=== PATIENT | female | born 1940 | race Caucasian/White ===

== ENCOUNTER 2018-02-15 03:06 | Inpatient (IN) | payer BC, MEDICARE ==
[~2018-02-15] VITALS: Ht 170.2 cm; Wt 99.0 kg
[2018-02-15] MEDS ORDERED: SODIUM CHLORIDE FLUSH 10ML SYR IVF ONE (03:30)
[2018-02-15] MEDS ORDERED: ACETAMINOPHEN 500 MG TABLET PO ONE (03:45)
[2018-02-15 03:48] LABS: ALANINE AMINOTRANSFERASE 16 U/L (12-78); ALBUMIN 3.1 g/dL (3.4-5.0); ANION GAP 7 mmol/L (5-15); CALCIUM 8.5 mg/dL (8.5-10.1); CHLORIDE 104 mmol/L (98-107); CREATININE 1.82 mg/dL (0.55-1.02)
[2018-02-15] MEDS ORDERED: ACETAMINOPHEN 500 MG TABLET ONE (03:52)
[2018-02-15 03:53] LABS: ALKALINE PHOSPHATASE 129 U/L (45-117); BILIRUBIN,TOTAL 0.4 mg/dL (0.2-1.0); TOTAL PROTEIN 6.9 g/dL (6.4-8.2); TROPONIN I < 0.015 ng/mL (0.000-0.045)
[2018-02-15 04:06] LABS: MICROSCOPIC INDICATED
[2018-02-15 04:15] LABS: CULTURE INDICATED? NO
[2018-02-15] MEDS ORDERED: SODIUM CHLORIDE 0.9% 1,000ML IVBOLUS ONE (04:30)
[2018-02-15] MEDS ORDERED: CEFTRIAXONE 1,000 MG in SODIUM CHLORIDE 0.9% 50 ML IVPB ONE (04:30)
[2018-02-15] MEDS ORDERED: AZITHROMYCIN 250 MG TABLET PO ONE ×2 (04:30→05:00)
[2018-02-15 04:33] LABS: BASOPHILS # (AUTO) 0.02 x10^3/uL (0-0.1); BASOPHILS % (AUTO) 0 % (0-1); EOSINOPHILS # (AUTO) 0.79 x10^3/uL (0-0.4); EOSINOPHILS % (AUTO) 10 % (1-7); LYMPHOCYTES # (AUTO) 0.47 x10^3/uL (1-3.4); LYMPHOCYTES % (AUTO) 6 % (22-44); MD SCAN; MEAN CORPUSCULAR HEMOGLOBIN 29.7 pg (27.0-34.8); MEAN CORPUSCULAR HGB CONC 32.7 g/dL (32.4-35.8); MEAN CORPUSCULAR VOLUME 90.9 fL (80-100); MEAN PLATELET VOLUME 8.2 fL (7.4-10.4); MONOCYTES # (AUTO) 0.47 x10^3/uL (0.2-0.8); MONOCYTES % (AUTO) 6 % (2-9); NEUTROPHILS # (AUTO) 6.16 x10^3/uL (1.8-6.8); NEUTROPHILS % (AUTO) 78 % (42-75); PLATELET COUNT 191 x10^3/uL (130-400); RED BLOOD COUNT 3.66 x10^6/uL (3.82-5.3); RED CELL DISTRIBUTION WIDTH 14.1 % (9.6-15.2)
[2018-02-15 04:49] LABS: INTERNATIONAL NORMALIZED RATIO 1.05 (0.93-1.1); PROTHROMBIN TIME 11.1 Seconds (9.6-11.5)
[2018-02-15] MEDS ORDERED: AZITHROMYCIN 250 MG TABLET ONE (04:57)
[2018-02-15] MEDS ORDERED: CEFTRIAXONE PMX 1GM/50ML 50 ML ONE (04:57)
[2018-02-15 05:25] LABS: RAPID INFLUENZA A Negative (Negative); RAPID INFLUENZA B Negative (Negative)
[2018-02-15] MEDS ORDERED: CLON0.1T22 PO (05:29)
[2018-02-15] MEDS ORDERED: CYAN1TAB29 PO (05:29)
[2018-02-15] MEDS ORDERED: CLOP75TA PO (05:29)
[2018-02-15] MEDS ORDERED: GABA300C10 PO (05:29)
[2018-02-15] MEDS ORDERED: INSU100V13 SC (05:29)
[2018-02-15] MEDS ORDERED: OMEP-110 PO (05:29)
[2018-02-15] MEDS ORDERED: METO25TA35 PO (05:29)
[2018-02-15] MEDS ORDERED: INSU100C5 SQ-INSULIN (05:29)
[2018-02-15] MEDS ORDERED: ONDA4TAB7 PO (05:29)
[2018-02-15] MEDS ORDERED: METF500T17 PO (05:29)
[2018-02-15] MEDS ORDERED: LOSA25TA6 PO (05:29)
[2018-02-15] MEDS ORDERED: ZINC100T PO (05:29)
[2018-02-15] MEDS ORDERED: POTA99TA24 PO (05:29)
[2018-02-15] MEDS ORDERED: ASPI-496 PO (05:29)
[2018-02-15] MEDS ORDERED: SODIUM CHLORIDE 0.9% 1,000 ML IV ONE (06:18)
[2018-02-15] MEDS ORDERED: ONDANSETRON 2MG/ML, 2ML IVPush PRN ×2 (06:30→08:30)
[2018-02-15] MEDS: AZITHROMYCIN 500 MG in SODIUM CHLORIDE 0.9% 250 ML IV SCH (08:30)
[2018-02-15] MEDS ORDERED: ACETAMINOPHEN 325 MG TABLET PO PRN (08:30)
[2018-02-15] MEDS: CEFTRIAXONE PMX 1GM/50ML 50 ML IV SCH (08:30)
[2018-02-15] MEDS ORDERED: morphine SULFATE 10 MG/ML, 1ML IVPush PRN (08:30)
[2018-02-15] MEDS ORDERED: POLYETHYLENE GLYCOL 17 GM PACKET PO PRN (08:30)
[2018-02-15] MEDS ORDERED: DOCUSATE 100 MG CAPSULE PO PRN (08:30)
[2018-02-15] MEDS ORDERED: SENNA/DOCUSATE TABLET ONE ×2 (08:38→08:52)
[2018-02-15] MEDS ORDERED: CLOPIDOGREL 75 MG TABLET ONE (08:38)
[2018-02-15] MEDS ORDERED: FAMOTIDINE 20 MG TABLET ONE (08:38)
[2018-02-15] MEDS ORDERED: GABAPENTIN 300 MG CAPSULE ONE (08:39)
[2018-02-15] MEDS ORDERED: HEPARIN 5,000 UNITS/ML, 1ML ONE (08:39)
[2018-02-15] MEDS ORDERED: METOPROLOL TARTRATE 25 MG TABLET ONE (08:39)
[2018-02-15] MEDS: HEPARIN 5,000 UNITS/ML, 1ML SQ SCH ×2 (08:49→08:58)
[2018-02-15] MEDS: METOPROLOL TARTRATE 25 MG TABLET PO SCH (08:49)
[2018-02-15] MEDS: GABAPENTIN 300 MG CAPSULE PO SCH ×3 (08:50→21:04)
[2018-02-15] MEDS: CLOPIDOGREL 75 MG TABLET PO SCH (08:50)
[2018-02-15] MEDS: SENNA/DOCUSATE TABLET PO SCH (08:50)
[2018-02-15] MEDS ORDERED: FAMOTIDINE 20 MG TABLET PO SCH (09:00)
[2018-02-15 09:18] VITALS: BP 118/70
[2018-02-15] MEDS ORDERED: GLUCAGON 1 MG IM PRN (10:00)
[2018-02-15] MEDS ORDERED: DEXTROSE 50%, 50ML SYRINGE IVPush PRN (10:00)
[2018-02-15] MEDS ORDERED: DEXTROSE 4 GM TAB.CHEW PO PRN (10:00)
[2018-02-15] MEDS: ASPIRIN 81 MG TABLET EC PO SCH (10:21)
[2018-02-15] MEDS: LOSARTAN 25MG TABLET PO SCH (10:21)
[2018-02-15] MEDS: SODIUM CHLORIDE 0.9% 1,000 ML IV SCH ×2 (10:21→20:20)
[2018-02-15] MEDS: INSULIN LISPRO 100 UNITS/ML, PEN SQ-INSULIN SCH ×3 (12:00→21:05)
[2018-02-15 13:15] VITALS: BP 116/84
[2018-02-15 13:49] VITALS: BP 118/70
[2018-02-15] MEDS: HYDROcodone/APAP 5/325 TABLET PO PRN (18:06)
[2018-02-15 19:39] VITALS: BP 146/74
[2018-02-15] MEDS: SODIUM CHLORIDE FLUSH 10ML SYR IVF SCH (21:05)
[2018-02-16 01:56] VITALS: BP 161/70
[2018-02-16] MEDS: HYDROcodone/APAP 5/325 TABLET PO PRN ×2 (03:04→08:43)
[2018-02-16] MEDS: CEFTRIAXONE PMX 1GM/50ML 50 ML IV SCH (05:26)
[2018-02-16 06:17] LABS: BASOPHILS % (AUTO) 0 % (0-1); EOSINOPHILS # (AUTO) 0.66 x10^3/uL (0-0.4); EOSINOPHILS % (AUTO) 13 % (1-7); LYMPHOCYTES # (AUTO) 0.65 x10^3/uL (1-3.4); LYMPHOCYTES % (AUTO) 12 % (22-44); MD NO; MEAN CORPUSCULAR HEMOGLOBIN 31.1 pg (27.0-34.8); MEAN CORPUSCULAR HGB CONC 34.1 g/dL (32.4-35.8); MEAN CORPUSCULAR VOLUME 91.2 fL (80-100); MEAN PLATELET VOLUME 7.8 fL (7.4-10.4); MONOCYTES # (AUTO) 0.53 x10^3/uL (0.2-0.8); MONOCYTES % (AUTO) 10 % (2-9); NEUTROPHILS % (AUTO) 65 % (42-75); PLATELET COUNT 142 x10^3/uL (130-400); RED BLOOD COUNT 3.11 x10^6/uL (3.82-5.3); RED CELL DISTRIBUTION WIDTH 14.6 % (9.6-15.2)
[2018-02-16 06:27] LABS: CHLORIDE 107 mmol/L (98-107)
[2018-02-16 06:36] LABS: ANION GAP 8 mmol/L (5-15); CALCIUM 7.7 mg/dL (8.5-10.1); CREATININE 1.24 mg/dL (0.55-1.02)
[2018-02-16] MEDS: INSULIN LISPRO 100 UNITS/ML, PEN SQ-INSULIN SCH ×4 (07:00→23:00)
[2018-02-16 07:50] VITALS: BP 164/67
[2018-02-16] MEDS: AZITHROMYCIN 500 MG in SODIUM CHLORIDE 0.9% 250 ML IV SCH (08:41)
[2018-02-16] MEDS: CLOPIDOGREL 75 MG TABLET PO SCH (08:42)
[2018-02-16] MEDS: ASPIRIN 81 MG TABLET EC PO SCH (08:42)
[2018-02-16] MEDS: FAMOTIDINE 20 MG TABLET PO SCH (08:42)
[2018-02-16] MEDS: METOPROLOL TARTRATE 25 MG TABLET PO SCH (08:43)
[2018-02-16] MEDS: LOSARTAN 25MG TABLET PO SCH (08:43)
[2018-02-16] MEDS: GABAPENTIN 300 MG CAPSULE PO SCH ×3 (08:43→23:00)
[2018-02-16] MEDS: SENNA/DOCUSATE TABLET PO SCH (08:44)
[2018-02-16] MEDS: SODIUM CHLORIDE FLUSH 10ML SYR IVF SCH ×2 (09:00→21:00)
[2018-02-16] MEDS ORDERED: MAGNESIUM SULFATE PMX 2GM/50ML 50 ML IV ONE (09:00)
[2018-02-16 13:33] VITALS: BP 136/73
[2018-02-16 19:45] VITALS: BP 156/72
[2018-02-17 01:31] VITALS: BP 155/83
[2018-02-17] MEDS: CEFTRIAXONE PMX 1GM/50ML 50 ML IV SCH (04:51)
[2018-02-17] MEDS: CLOPIDOGREL 75 MG TABLET PO SCH (07:33)
[2018-02-17] MEDS: METOPROLOL TARTRATE 25 MG TABLET PO SCH (07:33)
[2018-02-17] MEDS: ASPIRIN 81 MG TABLET EC PO SCH (07:33)
[2018-02-17] MEDS: LOSARTAN 25MG TABLET PO SCH (07:33)
[2018-02-17] MEDS: FAMOTIDINE 20 MG TABLET PO SCH (07:33)
[2018-02-17] MEDS: GABAPENTIN 300 MG CAPSULE PO SCH ×2 (07:34→16:20)
[2018-02-17] MEDS: INSULIN LISPRO 100 UNITS/ML, PEN SQ-INSULIN SCH ×3 (07:35→16:20)
[2018-02-17] MEDS: AZITHROMYCIN 500 MG in SODIUM CHLORIDE 0.9% 250 ML IV SCH (07:36)
[2018-02-17] MEDS: SODIUM CHLORIDE FLUSH 10ML SYR IVF SCH (07:39)
[2018-02-17] MEDS: SENNA/DOCUSATE TABLET PO SCH (07:40)
[2018-02-17 09:00] VITALS: BP 135/81
[2018-02-17] MEDS ORDERED: CEFD300C37 PO (12:12)
[2018-02-17] MEDS ORDERED: AZIT500T5 PO (12:12)
[2018-02-17 15:58] VITALS: BP 157/84
== END 2018-02-17 17:36 | disposition home health service (06) | DRG 682 ==
LOC: ED 05:52 → EDIP 06:18 → 4NOR 09:06
PROVIDERS: ADMIT Family Medicine; ATTEND Family Medicine
PROC: 0T9B70Z Drainage of Bladder with Drainage Device, Via Natural or Artificial Opening (ICD-10-PCS; principal; 2018-02-15)
DX: N17.0 Acute kidney failure with tubular necrosis (principal); J15.9 Unspecified bacterial pneumonia; E43 Unspecified severe protein-calorie malnutrition; R65.11 Systemic inflammatory response syndrome (SIRS) of non-infectious origin with acute organ dysfunction; E11.40 Type 2 diabetes mellitus with diabetic neuropathy, unspecified; E11.65 Type 2 diabetes mellitus with hyperglycemia; E87.5 Hyperkalemia; R29.6 Repeated falls; R33.9 Retention of urine, unspecified; G89.29 Other chronic pain; M54.9 Dorsalgia, unspecified; E86.0 Dehydration; I51.7 Cardiomegaly; Z66 Do not resuscitate; Z83.3 Family history of diabetes mellitus; Z68.34 Body mass index [BMI] 34.0-34.9, adult; Z88.8 Allergy status to other drugs, medicaments and biological substances
CPT/HCPCS: 36415; 70450; 71045; 80048; 80053; 81001; 82962; 83605; 83735; 84145; 84484; 85025; 85610; 85730; 87040; 87400; 93005; 96365; 99291; G0378; J0456; J0696; J1815; J3475; J7030; J7050

== ENCOUNTER 2020-11-30 08:19 | Inpatient (IN) | payer MEDICARE, BC ==
[~2020-11-30] VITALS: Ht 170.2 cm; Wt 72.4 kg
[~2020-11-30 08:19] MED LIST: ASPI-496 PO; AZIT500T10 PO; CEFD300C37 PO; CLON0.1T22 PO; CLOP75TA PO; CYAN1TAB29 PO; GABA300C10 PO; INSU100C5 SQ-INSULIN; INSU100V13 SC; LOSA25TA25 PO; METF500T17 PO; METO25TA35 PO; OMEP-110 PO; ONDA4TAB7 PO; POTA99TA24 PO; ZINC100T PO
--- NOTE | 2020-11-30 08:51 | NUR ---
THIS IS A 80 YEAR OLD WHO RESIDES AT [facility]. PT HAD BEEN UNABLE TO AMBULATE FOR OVER 48 HOURS, FOUND IN STOOL AND URINE WITH MULTIPLE PRESSURE SORES AND SHINGLES NOTED. PT PLACED ON WAFFLE AIR MATTRESS. CLEANED WITH SOAP AND WATER AND REPOSITIONED TO RIGHT SIDE, STRAIGHT CATH, AND PUREWICK PLACED. 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 PT ON PLASTICS FITTER AFIB AT 105, CONTINOUS SP02 2LNC, AND CYCLE VS.
[2020-11-30] MEDS ORDERED: PLEASE ENTER HEIGHT AND WEIGHT MC SCH (09:00)
[2020-11-30] MEDS ORDERED: SODIUM CHLORIDE 0.9% 1,000ML IVBOLUS ONE (09:00)
[2020-11-30 09:34] LABS: MICROSCOPIC INDICATED
[2020-11-30] MEDS ORDERED: CALC-356 MT (09:56)
[2020-11-30] MEDS ORDERED: CITA20TA9 PO (09:57)
[2020-11-30] MEDS ORDERED: FLUC100T4 PO (09:58)
[2020-11-30 10:04] LABS: BASOPHILS % (AUTO) 1 % (0-1); EOSINOPHILS % (AUTO) 3 % (1-7); LYMPHOCYTES % (AUTO) 15 % (22-44); MEAN CORPUSCULAR HEMOGLOBIN 30.7 pg (27.0-34.8); MEAN PLATELET VOLUME 7.9 fL (7.4-10.4); MONOCYTES % (AUTO) 8 % (2-9); NEUTROPHILS % (AUTO) 74 % (42-75); PLATELET COUNT 241 x10^3/uL (130-400); RED BLOOD COUNT 3.39 x10^6/uL (3.82-5.3); RED CELL DISTRIBUTION WIDTH 14.4 % (9.6-15.2)
[2020-11-30 10:15] LABS: ALANINE AMINOTRANSFERASE 19 U/L (12-78); ALBUMIN 2.4 g/dL (3.4-5.0); ANION GAP 8 mmol/L (5-15); CALCIUM 8.7 mg/dL (8.5-10.1); CHLORIDE 109 mmol/L (98-107); CREATININE 1.33 mg/dL (0.55-1.02)
[2020-11-30 10:17] LABS: ALKALINE PHOSPHATASE 102 U/L (45-117); BILIRUBIN,TOTAL 0.3 mg/dL (0.2-1.0); CREATINE KINASE, TOTAL 61 U/L (26-192); TOTAL PROTEIN 7.3 g/dL (6.4-8.2)
--- NOTE | 2020-11-30 10:18 | NUR ---
PT SLEEPING, RESP EVEN AND UNLABORED
[2020-11-30] MEDS ORDERED: CEFTRIAXONE 1,000 MG in DEXTROSE 5% 50 ML IVPB ONE (11:00)
[2020-11-30] MEDS: VALACYCLOVIR 500MG TABLET PO SCH ×2 (11:18→20:03)
--- NOTE | 2020-11-30 11:27 | NUR ---
REPORT TO MANNY ARCHER, PLAN OF CARE DISCUSSED.
[2020-11-30 12:41] VITALS: BP 131/70
[2020-11-30] MEDS ORDERED: METO50TA6 PO (12:41)
[2020-11-30] MEDS ORDERED: ENALAPRILAT 1.25 MG/ML, 2ML IVPush PRN (13:00)
[2020-11-30] MEDS ORDERED: MELATONIN 5 MG TABLET PO PRN (13:00)
[2020-11-30] MEDS ORDERED: ACETAMINOPHEN 325 MG TABLET PO PRN (13:00)
[2020-11-30] MEDS ORDERED: ONDANSETRON 2MG/ML, 2ML IVPush PRN (13:00)
[2020-11-30] MEDS: INSULIN LISPRO 100 UNITS/ML, PEN SQ-INSULIN SCH ×3 (13:00→21:00)
[2020-11-30] MEDS: METOPROLOL TARTRATE 50 MG TAB PO SCH (14:15)
[2020-11-30 14:37] LABS: HCT (SEDRATE) 31.6 % (34.6-47.8)
[2020-11-30 19:53] VITALS: BP 137/73
[2020-12-01 01:03] VITALS: BP 105/50
[2020-12-01] MEDS: VALACYCLOVIR 500MG TABLET PO SCH ×3 (02:09→19:31)
[2020-12-01 05:25] LABS: BASOPHILS % (AUTO) 1 % (0-1); EOSINOPHILS % (AUTO) 6 % (1-7); LYMPHOCYTES % (AUTO) 22 % (22-44); MEAN CORPUSCULAR HEMOGLOBIN 30.6 pg (27.0-34.8); MEAN CORPUSCULAR HGB CONC 33.2 g/dL (32.4-35.8); MEAN PLATELET VOLUME 8.1 fL (7.4-10.4); MONOCYTES % (AUTO) 9 % (2-9); NEUTROPHILS % (AUTO) 62 % (42-75); PLATELET COUNT 225 x10^3/uL (130-400); RED BLOOD COUNT 3.06 x10^6/uL (3.82-5.3); RED CELL DISTRIBUTION WIDTH 14.7 % (9.6-15.2)
[2020-12-01 05:35] LABS: ANION GAP 4 mmol/L (5-15); CALCIUM 8.5 mg/dL (8.5-10.1); CHLORIDE 114 mmol/L (98-107)
[2020-12-01 05:38] LABS: ALANINE AMINOTRANSFERASE 19 U/L (12-78); ALKALINE PHOSPHATASE 88 U/L (45-117); BILIRUBIN,TOTAL 0.4 mg/dL (0.2-1.0); CREATININE 1.18 mg/dL (0.55-1.02); TOTAL PROTEIN 6.4 g/dL (6.4-8.2)
[2020-12-01 06:31] VITALS: BP 127/56
[2020-12-01] MEDS: INSULIN LISPRO 100 UNITS/ML, PEN SQ-INSULIN SCH ×4 (07:00→21:56)
[2020-12-01] MEDS ORDERED: VANCOMYCIN PER PHARMACY MC SCH (09:00)
[2020-12-01] MEDS ORDERED: VANCOMYCIN 1,500 MG in SODIUM CHLORIDE 0.9% 250 ML IV ONE (09:00)
[2020-12-01] MEDS ORDERED: PHARMACOKINETIC CONSULTATION MC ONE (09:30)
[2020-12-01] MEDS ORDERED: PHARMACOKINETIC MONITORING MC PRN (09:30)
[2020-12-01] MEDS: METOPROLOL TARTRATE 50 MG TAB PO SCH (10:19)
[2020-12-01] MEDS ORDERED: CEFTRIAXONE 2 GM in DEXTROSE 5% 50 ML IVPB SCH (12:00)
[2020-12-01 15:15] VITALS: BP 140/59
[2020-12-01 19:18] VITALS: BP 116/56
[2020-12-01] MEDS: MAGNESIUM OXIDE 400 MG TABLET PO SCH (20:59)
[2020-12-02 01:24] VITALS: BP 122/79
[2020-12-02] MEDS: VALACYCLOVIR 500MG TABLET PO SCH ×3 (03:11→19:36)
[2020-12-02 07:27] VITALS: BP 128/63
[2020-12-02] MEDS: INSULIN LISPRO 100 UNITS/ML, PEN SQ-INSULIN SCH ×4 (07:27→20:15)
[2020-12-02] MEDS: MAGNESIUM OXIDE 400 MG TABLET PO SCH ×2 (09:04→20:13)
[2020-12-02] MEDS: METOPROLOL TARTRATE 50 MG TAB PO SCH (09:04)
[2020-12-02 09:16] LABS: BASOPHILS % (AUTO) 1 % (0-1); EOSINOPHILS % (AUTO) 6 % (1-7); LYMPHOCYTES % (AUTO) 16 % (22-44); MEAN CORPUSCULAR HEMOGLOBIN 30.9 pg (27.0-34.8); MEAN CORPUSCULAR HGB CONC 33.7 g/dL (32.4-35.8); MONOCYTES % (AUTO) 8 % (2-9); NEUTROPHILS % (AUTO) 69 % (42-75); PLATELET COUNT 188 x10^3/uL (130-400); RED BLOOD COUNT 3.09 x10^6/uL (3.82-5.3); RED CELL DISTRIBUTION WIDTH 14.3 % (9.6-15.2)
[2020-12-02 09:25] LABS: ALBUMIN 1.9 g/dL (3.4-5.0); ANION GAP 5 mmol/L (5-15); CALCIUM 8.1 mg/dL (8.5-10.1); CHLORIDE 112 mmol/L (98-107)
[2020-12-02 09:29] LABS: ALANINE AMINOTRANSFERASE 18 U/L (12-78); ALKALINE PHOSPHATASE 88 U/L (45-117); BILIRUBIN,TOTAL 0.4 mg/dL (0.2-1.0); CREATININE 1.28 mg/dL (0.55-1.02); TOTAL PROTEIN 6.4 g/dL (6.4-8.2)
[2020-12-02] MEDS ORDERED: VANCOMYCIN 1,300 MG in SODIUM CHLORIDE 0.9% 250 ML IV SCH (10:00)
[2020-12-02 14:56] VITALS: BP 126/63
[2020-12-02] MEDS ORDERED: CEFAZOLIN 2,000 MG in SODIUM CHLORIDE 0.9% 50 ML IV SCH (15:00)
[2020-12-02] MEDS: CEFAZOLIN 2,000 MG in DEXTROSE 5% 50 ML IV SCH (17:30)
[2020-12-02] MEDS: FLUCONAZOLE 200 MG TABLET PO SCH (17:31)
[2020-12-02 20:15] VITALS: BP 147/60
[2020-12-03 02:04] VITALS: BP 141/71
[2020-12-03] MEDS: CEFAZOLIN 2,000 MG in DEXTROSE 5% 50 ML IV SCH ×2 (02:54→14:55)
[2020-12-03] MEDS: VALACYCLOVIR 500MG TABLET PO SCH ×3 (02:54→19:41)
[2020-12-03 05:55] LABS: BASOPHILS % (AUTO) 1 % (0-1); EOSINOPHILS % (AUTO) 6 % (1-7); LYMPHOCYTES % (AUTO) 20 % (22-44); MEAN CORPUSCULAR HEMOGLOBIN 31.2 pg (27.0-34.8); MEAN PLATELET VOLUME 7.8 fL (7.4-10.4); MONOCYTES % (AUTO) 9 % (2-9); NEUTROPHILS % (AUTO) 64 % (42-75); PLATELET COUNT 187 x10^3/uL (130-400); RED BLOOD COUNT 3.16 x10^6/uL (3.82-5.3); RED CELL DISTRIBUTION WIDTH 14.3 % (9.6-15.2)
[2020-12-03 05:59] LABS: ALANINE AMINOTRANSFERASE 18 U/L (12-78); ALBUMIN 2.2 g/dL (3.4-5.0); ANION GAP 10 mmol/L (5-15); CALCIUM 8.5 mg/dL (8.5-10.1); CHLORIDE 112 mmol/L (98-107); CREATININE 1.25 mg/dL (0.55-1.02)
[2020-12-03 06:01] LABS: ALKALINE PHOSPHATASE 94 U/L (45-117); BILIRUBIN,TOTAL 0.3 mg/dL (0.2-1.0); TOTAL PROTEIN 6.8 g/dL (6.4-8.2)
[2020-12-03] MEDS: INSULIN LISPRO 100 UNITS/ML, PEN SQ-INSULIN SCH ×4 (07:00→21:00)
[2020-12-03 07:02] VITALS: BP 156/78
[2020-12-03] MEDS ORDERED: POLYETHYLENE GLYCOL 17 GM PACKET PO PRN (09:00)
[2020-12-03] MEDS: FLUCONAZOLE 200 MG TABLET PO SCH (09:05)
[2020-12-03] MEDS: METOPROLOL TARTRATE 50 MG TAB PO SCH (09:05)
[2020-12-03] MEDS: MAGNESIUM OXIDE 400 MG TABLET PO SCH ×2 (09:05→19:41)
[2020-12-03 11:39] LABS: HCT (SEDRATE) 31.8 % (34.6-47.8)
[2020-12-03 12:46] VITALS: BP 117/56
[2020-12-03 19:23] VITALS: BP 151/74
[2020-12-04 02:17] VITALS: BP 154/75
[2020-12-04] MEDS: CEFAZOLIN 2,000 MG in DEXTROSE 5% 50 ML IV SCH (03:26)
[2020-12-04] MEDS: VALACYCLOVIR 500MG TABLET PO SCH ×3 (03:26→19:40)
[2020-12-04 04:56] LABS: BASOPHILS % (AUTO) 0 % (0-1); EOSINOPHILS % (AUTO) 7 % (1-7); LYMPHOCYTES % (AUTO) 26 % (22-44); MEAN CORPUSCULAR HEMOGLOBIN 30.7 pg (27.0-34.8); MEAN CORPUSCULAR HGB CONC 33.6 g/dL (32.4-35.8); MEAN PLATELET VOLUME 7.7 fL (7.4-10.4); MONOCYTES % (AUTO) 10 % (2-9); NEUTROPHILS % (AUTO) 57 % (42-75); PLATELET COUNT 223 x10^3/uL (130-400); RED BLOOD COUNT 3.46 x10^6/uL (3.82-5.3); RED CELL DISTRIBUTION WIDTH 14.2 % (9.6-15.2)
[2020-12-04 05:03] LABS: ALBUMIN 2.3 g/dL (3.4-5.0); ANION GAP 7 mmol/L (5-15); CHLORIDE 109 mmol/L (98-107)
[2020-12-04 05:08] LABS: ALANINE AMINOTRANSFERASE 13 U/L (12-78); ALKALINE PHOSPHATASE 99 U/L (45-117); BILIRUBIN,TOTAL 0.3 mg/dL (0.2-1.0); CREATININE 1.13 mg/dL (0.55-1.02); TOTAL PROTEIN 7.1 g/dL (6.4-8.2)
[2020-12-04] MEDS: INSULIN LISPRO 100 UNITS/ML, PEN SQ-INSULIN SCH ×4 (07:00→20:53)
[2020-12-04 07:33] VITALS: BP 152/93
[2020-12-04] MEDS ORDERED: ACETAMINOPHEN 325 MG TABLET PO PRN (09:00)
[2020-12-04] MEDS: FLUCONAZOLE 200 MG TABLET PO SCH (09:42)
[2020-12-04] MEDS: METOPROLOL TARTRATE 50 MG TAB PO SCH (09:43)
[2020-12-04] MEDS: MAGNESIUM OXIDE 400 MG TABLET PO SCH ×2 (09:43→20:53)
[2020-12-04] MEDS: CEFAZOLIN PMX 1GM/50ML 50 ML IV SCH ×2 (13:25→19:40)
[2020-12-04 14:13] VITALS: BP 146/72
[2020-12-04] MEDS ORDERED: FLUC200T PO (14:30)
[2020-12-04] MEDS ORDERED: VALA500T8 PO (14:30)
[2020-12-04 20:00] VITALS: BP 153/76
[2020-12-05 00:42] VITALS: BP 144/64
[2020-12-05] MEDS: CEFAZOLIN PMX 1GM/50ML 50 ML IV SCH ×2 (03:33→11:36)
[2020-12-05] MEDS: VALACYCLOVIR 500MG TABLET PO SCH ×2 (03:34→11:36)
[2020-12-05] MEDS: INSULIN LISPRO 100 UNITS/ML, PEN SQ-INSULIN SCH ×3 (07:00→16:00)
[2020-12-05 08:36] VITALS: BP 153/64
[2020-12-05] MEDS: MAGNESIUM OXIDE 400 MG TABLET PO SCH (08:37)
[2020-12-05] MEDS: FLUCONAZOLE 200 MG TABLET PO SCH (08:37)
[2020-12-05] MEDS: METOPROLOL TARTRATE 50 MG TAB PO SCH (08:38)
[2020-12-05 14:00] VITALS: BP 144/75
== END 2020-12-05 16:48 | DRG 872 ==
LOC: ED 10:52 → EDIP 10:57 → 4NW 11:56
PROVIDERS: ADMIT Hospitalist; ATTEND Internal Medicine
PROC: 0T9B70Z Drainage of Bladder with Drainage Device, Via Natural or Artificial Opening (ICD-10-PCS; principal; 2020-11-30)
DX: A40.9 Streptococcal sepsis, unspecified (principal); N39.0 Urinary tract infection, site not specified; E44.1 Mild protein-calorie malnutrition; B02.9 Zoster without complications; D64.9 Anemia, unspecified; E11.22 Type 2 diabetes mellitus with diabetic chronic kidney disease; E78.5 Hyperlipidemia, unspecified; G89.29 Other chronic pain; I12.9 Hypertensive chronic kidney disease with stage 1 through stage 4 chronic kidney disease, or unspecified chronic kidney disease; N18.30 Chronic kidney disease, stage 3 unspecified; R32 Unspecified urinary incontinence; G43.909 Migraine, unspecified, not intractable, without status migrainosus; M54.9 Dorsalgia, unspecified; Z20.822 Contact with and (suspected) exposure to COVID-19; Z66 Do not resuscitate; Z85.43 Personal history of malignant neoplasm of ovary; Z68.25 Body mass index [BMI] 25.0-25.9, adult; Z87.440 Personal history of urinary (tract) infections; Z89.511 Acquired absence of right leg below knee; Z90.710 Acquired absence of both cervix and uterus; Z90.722 Acquired absence of ovaries, bilateral; Z90.49 Acquired absence of other specified parts of digestive tract
CPT/HCPCS: 36415; 36573; 80053; 81001; 82550; 82962; 83036; 83735; 84100; 85025; 85651; 86140; 87040; 87086; 87106; 87635; 93306; 96361; 96365; 99285; G0378; J0690; J0696; J2405; J3370; C1751; J1815; J7030; J7050